=== PATIENT | female | born 1985 | race Caucasian/White ===

== ENCOUNTER 2018-01-25 00:30 | Emergency (ER) | payer SELFPAY ==
[2018-01-25] MEDS ORDERED: Ondansetron ODT TAB* 4 MG PO ONE (01:08)
[2018-01-25] MEDS ORDERED: Morphine VIAL* 4 MG/ML VIAL (1 ml vial) IV ONE (01:08)
[2018-01-25] MEDS ORDERED: Al Hydrox/Mg Hydrox/Simet LIQ* 30 ML UDC PO ONE (01:08)
[2018-01-25] MEDS ORDERED: Lidocaine 2% VISCOUS* 15 ML UDC PO ONE (01:08)
[2018-01-25] MEDS ORDERED: Pantoprazole IV* 40 MG IV ONE (01:08)
[2018-01-25] MEDS ORDERED: Famotidine TAB 40 MG(NF) 40 MG TAB PO ONE (01:10)
[2018-01-25 01:23] LABS: ABS Basophils 0 10^3/ul (0-0.2); ABS Eosinophils 0 10^3/ul (0-0.6); ABS Lymphocytes 1.3 10^3/ul (1.0-4.8); ABS Monocytes 0.3 10^3/ul (0-0.8); ABS Neutrophils 5.4 10^3/ul (1.5-7.7); ABS Nucleated RBC 0 10^3/ul; Eosinophil % 0.4 % (0-6); Hematocrit 39 % (35-47); Hemoglobin 13.3 g/dl (12.0-16.0); Lymphocyte % 18.2 % (25-47); Mean Corpuscular HGB Conc 34 g/dl (31-36); Mean Corpuscular Hemoglobin 33 pg (27-31); Mean Corpuscular Volume 96 fL (80-97); Mean Platelet Volume 8.4 um3 (7.4-10.4); Nucleated Red Blood Cells % 0; Platelet Count 231 10^3/ul (150-450); Red Cell Distribution Width 14 % (10.5-15); White Blood Count 7.1 10^3/ul (3.5-10.8)
[2018-01-25] MEDS ORDERED: Famotidine IV* 10 MG/ML 2 ML (20 mg) IV SLOW PU ONE (01:27)
[2018-01-25] MEDS ORDERED: Famotidine IV* 10 MG/ML 2 ML (20 mg) ONE (01:28)
[2018-01-25 01:40] LABS: EGFR Non-African American 95.4 (>60)
[2018-01-25 02:25] VITALS: BP 130/69
--- NOTE | 2018-01-25 02:26 | ED ---
Rashawn Spencer Nilda, scribed for Marcelo Dunne MD on 01/25/18 at 0112 . Abdominal Pain/Female - HPI Summary HPI Summary: This patient is a 32 year old F presenting to [facility] accompanied by with a chief complaint of constant epigastric pain that radiates up back and chest with N/V for the past 3 days. The patient rates the pain 9/10 in severity. Symptoms alleviated by nothing including Prilosec and ibuprofen. Patient reports belching, but denies dysuria. Pt denies daily medications. LNMP 1.5 weeks ago. - History of Current Complaint Chief Complaint: EDAbdPain Stated Complaint: NAUSEA/VOMITING/ABD PAIN Time Seen by Provider: 01/25/18 00:57 Hx Obtained From: Patient Hx Last Menstrual Period: 1.5 weeks ago Onset/Duration: Sudden Onset, Lasting Days, Still Present Timing: Constant Severity Currently: Severe Pain Intensity: 9 Pain Scale Used: 0-10 Numeric Location: Epigastric Radiates: Yes Radiates to: Back, Chest Alleviating Factor(s): Nothing Associated Signs and Symptoms: Positive: Other: - N/V, belching, but denies dysuria Allergies/Adverse Reactions: Allergies Allergy/AdvReac Type Severity Reaction Status Date / Time No Known Allergies Allergy Verified 05/10/16 14:23 PMH/Surg Hx/FS Hx/Imm Hx Endocrine/Hematology History: Denies: Hx Diabetes, Hx Thyroid Disease Cardiovascular History: Denies: Hx Hypertension Respiratory History: Denies: Hx Asthma, Hx Chronic Obstructive Pulmonary Disease (COPD) GI History: Denies: Hx Ulcer - Surgical History Surgery Procedure, Year, and Place: C section 2007 Infectious Disease History: No Infectious Disease History: Denies: Hx Hepatitis, Hx Human Immunodeficiency Virus (HIV), Traveled Outside the [place] in Last 30 Days - Family History Known Family History: Negative: Cardiac Disease, Hypertension, Diabetes - Social History Occupation: Employed Full-time Lives: With Family Alcohol Use: None Substance Use Type: Reports: None Smoking Status (MU): Former Smoker Have You Smoked in the Last Year: No Review of Systems Positive: Abdominal Pain - epigastric pain that radiates up back and chest, Vomiting, Nausea, Other - belching Negative: dysuria All Other Systems Reviewed And Are Negative: Yes Physical Exam - Summary Physical Exam Summary: Appearance: Well appearing, uncomfortable, mild distress Skin: warm, dry, reflects adequate perfusion Head/face: normal Eyes: EOMI, MANASA ENT: normal Neck: supple, non-tender Respiratory: CTA, breath sounds present Cardiovascular: RRR, pulses symmetrical Abdomen: soft, no CVA tenderness, epigastric tenderness is moderate, no significant RUQ tenderness, negative Ribeiro signs, no RLQ tenderness Bowel Sounds: present Musculoskeletal: normal, strength/ROM intact Neuro: normal, sensory motor intact, A&Ox3 Triage Information Reviewed: Yes Vital Signs On Initial Exam: Initial Vitals Temp Pulse Resp BP Pulse Ox 97.1 F 75 18 134/67 99 01/25/18 00:41 01/25/18 00:41 01/25/18 00:41 01/25/18 00:41 01/25/18 00:41 Vital Signs Reviewed: Yes Diagnostics - Vital Signs Vital Signs Temp Pulse Resp BP Pulse Ox 01/25/18 00:41 97.1 F 75 18 134/67 99 - Laboratory Lab Results: Lab Results 01/25/18 01/25/18 01/25/18 Range/Units 01:17 01:17 01:17 WBC 7.1 (3.5-10.8) 10^3/ul RBC 4.10 (4.0-5.4) 10^6/ul Hgb 13.3 (12.0-16.0) g/dl Hct 39 (35-47) % MCV 96 (80-97) fL MCH 33 H (27-31) pg MCHC 34 (31-36) g/dl RDW 14 (10.5-15) % Plt Count 231 (150-450) 10^3/ul MPV 8.4 (7.4-10.4) um3 Neut % (Auto) 76.9 (38-83) % Lymph % (Auto) 18.2 L (25-47) % [place] % (Auto) 4.1 (0-7) % Eos % (Auto) 0.4 (0-6) % Baso % (Auto) 0.4 (0-2) % Absolute Neuts (auto) 5.4 (1.5-7.7) 10^3/ul Absolute Lymphs (auto) 1.3 (1.0-4.8) 10^3/ul Absolute Monos (auto) 0.3 (0-0.8) 10^3/ul Absolute Eos (auto) 0 (0-0.6) 10^3/ul Absolute Basos (auto) 0 (0-0.2) 10^3/ul Absolute Nucleated RBC 0 10^3/ul Nucleated RBC % 0 Sodium 139 (139-145) mmol/L Potassium 3.9 (3.5-5.0) mmol/L Chloride 106 (101-111) mmol/L Carbon Dioxide 25 (22-32) mmol/L Anion Gap 8 (2-11) mmol/L BUN 10 (6-24) mg/dL Creatinine 0.71 (0.51-0.95) mg/dL Est GFR ( Amer) 122.7 (>60) Est GFR (Non-Af Amer) 95.4 (>60) BUN/Creatinine Ratio 14.1 (8-20) Glucose 129 H (70-100) mg/dL Lactic Acid 1.3 (0.5-2.0) mmol/L Calcium 8.8 (8.6-10.3) mg/dL Total Bilirubin 0.60 (0.2-1.0) mg/dL AST 11 L (13-39) U/L ALT 12 (7-52) U/L Alkaline Phosphatase 63 (34-104) U/L C-Reactive Protein < 1.00 (< 5.00) mg/L Total Protein 6.9 (6.4-8.9) g/dL Albumin 4.2 (3.2-5.2) g/dL Globulin 2.7 (2-4) g/dL Albumin/Globulin Ratio 1.6 (1-3) Lipase 19 (11.0-82.0) U/L Beta HCG, Quant 2.23 mIU/mL Result Diagrams: 18 01:17 18 01:17 Lab Statement: Any lab studies that have been ordered have been reviewed, and results considered in the medical decision making process. - Additional Comments Diagnostic Additional Comments: US abd at bedside, per Dr. Dunne, reveals no pericholecystic fluid, wall thickening, or stones. Negative sonographic ribeiro. Septation of the gallbladder. Re-Evaluation - Re-Evaluation First Eval Re-Evaluation Time: 02:12 Comment: Pt states pain is gone. Abdominal Pain Fem Course/Dx - Course Course Of Treatment: Patient with epigastric discomfort, dyspepsia and belching. No significant right upper quadrant pain. I examined the gallbladder bedside in a preliminary fashion and found there to be no wall thickening, stones etc. Her LFTs, lipase are normal. She has been taking ibuprofen and likely exacerbating a gastritis. It is possible she has peptic ulcer disease. There is been no blood in the stool or in the vomitus. Given H2 jean carlos, PPI and viscous lidocaine/Maalox here. This provided significant relief. We will continue some more outpatient. Follow up with a primary care physician. - Diagnoses Differential Diagnosis: Positive: Irritable Bowel Syndrome, Pancreatitis, Peptic Ulcer Disease, Other - Gastritis, , Provider Diagnoses: Gastritis, Epigastric pain Discharge - Sign-Out/Discharge Documenting (check all that apply): Discharge/Admit/Transfer - Discharge Plan Condition: Good Disposition: HOME Prescriptions: Famotidine TAB* [Pepcid 20 MG TAB*] 20 mg PO BID #20 tab Pantoprazole TAB (NF) [Protonix TAB (NF)] 40 mg PO DAILY #30 tab Sucralfate [Carafate] 1 gm PO QID #40 tablet Patient Education Materials: Gastritis (ED) Forms: *Work Release Referrals: [facility] [Outside] Additional Instructions: Avoid alcohol caffeine, anti-inflammatory medication such as ibuprofen, Aleve or aspirin. Avoid acidic or spicy foods. Return with vomiting blood, increased pain, dark or black stools, worse or other concerns as discussed. Call today to establish with a primary care physician. - Billing Disposition and Condition Condition: GOOD Disposition: HOME The documentation as recorded by the Rashawn hyde Nilda accurately reflects the service I personally performed and the decisions made by me, Marcelo Dunne MD.
== END 2018-01-25 02:23 | disposition home or self-care (01) ==
LOC: ED 00:38
DX: K29.70 Gastritis, unspecified, without bleeding (principal); Z87.891 Personal history of nicotine dependence
CPT/HCPCS: 36415; 80053; 83605; 83690; 84702; 85025; 86140; 96374; 96375; 99285; A9270-GY; J2270

== ENCOUNTER 2018-08-27 08:40 | Emergency (ER) | payer OTHER ==
[2018-08-27 08:46] VITALS: BP 109/58
--- NOTE | 2018-08-27 13:28 | UC ---
Course/Dx - Diagnoses Provider Diagnoses: Patient left without being seen Discharge - Sign-Out/Discharge Documenting (check all that apply): Post-Discharge Follow Up All imaging exams completed and their final reports reviewed: No Studies - Discharge Plan Condition: Stable Disposition: LEFT WITHOUT BEING SEEN Referrals: No Primary Care Phys,NOPCP [Primary Care Provider] - - Billing Disposition and Condition Condition: STABLE Disposition: Left Without Being Seen
== END 2018-08-27 09:25 | disposition left against medical advice (07) ==
LOC: UCEAST 08:40
DX: T15.91XA Foreign body on external eye, part unspecified, right eye, initial encounter (principal); Z53.21 Procedure and treatment not carried out due to patient leaving prior to being seen by health care provider